=== PATIENT | female | born 1955 | race Caucasian/White ===

== ENCOUNTER 2019-04-24 06:45 | Day surgery (SDC) | payer OTHER ==
[2019-04-21 16:15] VITALS: BMI 33.4
[2019-04-24 10:35] VITALS: TEMP 97.3
[2019-04-24 11:10] VITALS: BP 152/56; PULSE 72
--- NOTE | 2019-04-25 16:42 | PATH ---
Surgical Pathology Report Patient Name: HERBIE BRITO [facility]. Rec. #: [id number] /Age/Gender: 1955 (Age: 64) / F Account: [id number] Location: [facility]-ENDOSCOPY Taken: 04/24/2019 Received: 04/24/2019 Reported: 04/25/2019 Physicians: Jeanette Sousa M.D. Specimen(s) Received A: BULB AND SECOND PORTION DUODENUM B: POLYP GASTRIC BODY C: GASTRIC ANTRUM D: GE JUNCTION 38CM E: DISTAL ESOPHAGUS 35CM F: RECTAL POLYPS Clinical History Recurrent gastric reflux, polyp surveillance Postoperative diagnosis: Hiatal hernia with GERD, gastric polyp, rectal polyps, diverticulosis Final Diagnosis A. BULB AND SECOND PORTION OF DUODENUM, BIOPSY: DUODENAL MUCOSA WITH NO SIGNIFICANT PATHOLOGIC CHANGE. NO HISTOLOGIC EVIDENCE OF INTRAEPITHELIAL LYMPHOCYTOSIS. B. GASTRIC BODY POLYP, BIOPSY: FUNDIC GLAND POLYP. IMMUNOSTAIN FOR H. PYLORI IS NEGATIVE. C. GASTRIC ANTRUM, BIOPSY: GASTRIC MUCOSA WITH CHRONIC GASTRITIS. IMMUNOSTAIN FOR H. PYLORI IS NEGATIVE. NEGATIVE FOR INTESTINAL METAPLASIA. D. GE JUNCTION 38 CM, BIOPSY: SQUAMOUS/GLANDULAR JUNCTIONAL MUCOSA WITH ULCERATION, ACUTE AND CHRONIC INFLAMMATION, AND FOCAL CHANGES CONSISTENT WITH REFLUX ESOPHAGITIS. POSITIVE FOR INTESTINAL METAPLASIA, MAY REPRESENT PITT'S ESOPHAGUS IN THE PROPER CLINICAL SETTING. NEGATIVE FOR DYSPLASIA. PAS STAIN FOR FUNGAL HYPHAE IS NEGATIVE. E. DISTAL ESOPHAGUS 35 CM, BIOPSY: SQUAMOUS/GLANDULAR JUNCTIONAL MUCOSA WITH ACUTE AND CHRONIC INFLAMMATION, AND CHANGES CONSISTENT WITH REFLUX ESOPHAGITIS. POSITIVE FOR INTESTINAL METAPLASIA, MAY REPRESENT PITT'S ESOPHAGUS IN THE PROPER CLINICAL SETTING. NEGATIVE FOR DYSPLASIA. F. RECTAL POLYPS, POLYPECTOMY: HYPERPLASTIC POLYP, MULTIPLE FRAGMENTS. Electronically Signed Lili Hernández M.D. Gross Description A. Received in formalin, labeled "bulb and second portion of duodenum biopsy" are 4 bell, irregular portions of soft tissue ranging from 0.2-0.5 cm. in greatest dimension. The specimens are submitted in toto in one cassette. B. Received in formalin, labeled "polyp gastric body biopsy" is a bell, irregular portion of soft tissue measuring 0.2 cm. in greatest dimension. The specimen is submitted in toto in one cassette. C. Received in formalin, labeled "gastric antrum biopsy" are 4 bell, irregular portions of soft tissue ranging from 0.2-0.6 cm. in greatest dimension. The specimens are submitted in toto in one cassette. D. Received in formalin, labeled "GE junction 38 cm biopsy" are 5 bell, irregular portions of soft tissue ranging from 0.2-0.4 cm. in greatest dimension. The specimens are submitted in toto in one cassette. E. Received in formalin, labeled "distal esophagus 35 cm" are 4 bell, irregular portions of soft tissue ranging from 0.2-0.4 cm. in greatest dimension. The specimens are submitted in toto in one cassette. F. Received in formalin, labeled "rectal polyps biopsy" are 5 bell, irregular portions of soft tissue ranging from 0.3-0.4 cm. in greatest dimension. The specimens are submitted in toto in one cassette. 04/24/2019 [facility]04/24/2019
== END 2019-04-24 11:07 | disposition home or self-care (01) ==
LOC: JASU-ENDO 06:45
PROVIDERS: ATTEND Internal Medicine Gastroenterology
PROC: 0DBP8ZX Excision of Rectum, Via Natural or Artificial Opening Endoscopic, Diagnostic (ICD-10-PCS; principal; 2019-04-24 09:00)
DX: Z12.11 Encounter for screening for malignant neoplasm of colon (principal); K62.1 Rectal polyp; K57.30 Diverticulosis of large intestine without perforation or abscess without bleeding; Z86.010 Personal history of colon polyps
CPT/HCPCS: 88305-TC; 88312-TC; 88342-TC

== ENCOUNTER 2023-11-11 04:56 | Day surgery (SDC) | payer OTHER ==
[2023-11-09 13:26] VITALS: BMI 31.4
[2023-11-11 08:30] VITALS: TEMP 98.7
[2023-11-11 09:10] VITALS: BP 134/62; PULSE 76; RESP 18
== END 2023-11-11 09:40 | disposition home or self-care (01) ==
LOC: JASU-ENDO 04:56
PROVIDERS: ATTEND Internal Medicine Gastroenterology
PROC: 0DB38ZX Excision of Lower Esophagus, Via Natural or Artificial Opening Endoscopic, Diagnostic (ICD-10-PCS; principal; 2023-11-11 08:00)
DX: K22.70 Barrett's esophagus without dysplasia (principal); K21.00 Gastro-esophageal reflux disease with esophagitis, without bleeding; K44.9 Diaphragmatic hernia without obstruction or gangrene
CPT/HCPCS: 88305-TC; 88312-TC; 88342-TC